=== PATIENT | male | born 1930 | race Caucasian/White ===

== ENCOUNTER → 2016-08-20 | Outpatient (CLI) | payer OTHER, BC ==
[~2016-08-20] MED LIST: ATOR-22 PO; CHOL1000 PO; CHOL100010 PO; DABI150C PO; DUTA0.5C PO; PRD75 PO
[2016-08-20 11:04] LABS: ALT/SGPT 30 U/L (12-78); AST/SGOT 14 U/L (15-37); BLOOD UREA NITROGEN 16 mg/dl (7-18); BUN/CREATININE RATIO 16.1 (10-20); CALCIUM 8.7 mg/dl (8.5-10.1); CARBON DIOXIDE 29 mmol/L (21-32); CHLORIDE 103 mmol/L (98-107); CHOLESTEROL 147 mg/dl (0-200); CREATININE 0.97 mg/dl (0.60-1.40); GLUCOSE 113 mg/dl (70-99); POTASSIUM 4.2 mmol/L (3.5-5.1); SODIUM 137 mmol/L (136-145); TRIGLYCERIDES 87 mg/dl (0-150); VERY LOW DENSITY LIPOPROT CALC 17 mg/dl
[2016-08-20 11:05] LABS: ESTIMATED AVERAGE GLUCOSE 128 mg/dl; HA1C FLAG Normal (Normal)
[2016-08-20 11:07] LABS: ALB/GLOB RATIO 1.1 (0.9-2); ALKALINE PHOSPHATASE 55 U/L (45-117); CHOLESTEROL/HDL RATIO 2.8; HDL CHOLESTEROL 52 mg/dl; LDL CHOLESTEROL CALCULATED 78 mg/dl
--- NOTE | 2016-09-19 11:01 | CODING QUERY MEDICAL NECESSITY ---
SUPPORTING DIAGNOSIS NEEDED Dr. Jiménez, A supporting diagnosis is required for the test/procedure performed on this patient in order for us to be reimbursed by the patient's insurance. Please provide a supporting diagnosis for the following test/procedure listed below next to the test name along with your signature. *If there is no additional diagnosis for this patient that would support the following test/procedure please document that below next to the test/procedure. Test(s)/Procedure(s) that require a supporting diagnosis: * [id number] GLYCATED HEMOGLOBIN DIAGNOSIS: DATE OF SERVICE: 08/20/16 Provider Signature: Date: Thank you Dayron Ahuja [facility] Information Management Once completed, please kindly fax back to [phone] For questions please call [phone]
== END | disposition home or self-care (01) ==
LOC: C.LABBC 09:06
PROVIDERS: ATTEND Family Medicine
DX: N40.1 Benign prostatic hyperplasia with lower urinary tract symptoms (principal); E78.5 Hyperlipidemia, unspecified; I48.91 Unspecified atrial fibrillation; R73.03 Prediabetes; N13.8 Other obstructive and reflux uropathy

== ENCOUNTER → 2016-12-02 | Outpatient (CLI) | payer OTHER, BC ==
[~2016-12-02] MED LIST changes: -CHOL1000 PO; -DABI150C PO; -DUTA0.5C PO
--- NOTE | 2016-12-02 09:56 | DIAGNOSTIC IMAGING REPORT ---
RIGHT HIP UNILATERAL 2 VIEWS CLINICAL HISTORY: 86 years-old Male presenting with right hip pain. TECHNIQUE: Frontal and frog-leg lateral views of the right hip were obtained. COMPARISON: Correlation made to CT from 2015. FINDINGS: Right hip joint congruent. Mild subchondral sclerosis along the acetabulum with subchondral cystic change in the superior acetabulum better appreciated on CT from 2015. Minimal superior joint space loss may be present. No significant osteophytosis. No acute fracture or subluxation. Moderate stool burden in the rectum. IMPRESSION: 1. 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 No acute osseous injury of the right hip. Electronically signed by: Anatoly Murray M.D. 12/02/2016 9:54 AM Dictated Date/Time: 12/02/2016 9:52 AM
--- NOTE | 2016-12-02 09:56 | DIAGNOSTIC IMAGING REPORT ---
L-SPINE MIN 4 VIEWS ROUTINE HISTORY: Pain pain COMPARISON: 09/18/2014 FINDINGS: There is no fracture. No subluxation. Moderate degenerative disc changes throughout. No change compared to the prior study. Old mild wedge deformities of the low thoracic region are stable IMPRESSION: No acute process. Moderate degenerative change considered stable compared to the prior exam The above report was generated using voice recognition software. It may contain grammatical, syntax or spelling errors. Electronically signed by: Carmelo Cohen M.D. 12/02/2016 9:55 AM Dictated Date/Time: 12/02/2016 9:53 AM
== END | disposition home or self-care (01) ==
LOC: C.RADBC 09:05
PROVIDERS: ATTEND Nurse Practitioner Family
DX: M25.551 Pain in right hip (principal); M54.5 Low back pain

== ENCOUNTER → 2017-03-09 | Outpatient (CLI) | payer OTHER, BC ==
[~2017-03-09] MED LIST changes: +CHOL1000 PO; +DABI150C PO; +DUTA0.5C PO
--- NOTE | 2017-03-09 11:46 | DIAGNOSTIC IMAGING REPORT ---
(BARIUM SWALLOW) ESOPHAGUS CLINICAL HISTORY: R13.10 Dysphagia Do not sched until after Mar 05. E X0D E RADF COMPARISON STUDY: None. FLUOROSCOPY TIME: 1.2 minutes. 25 images submitted. FINDINGS: The patient swallowed barium without difficulty. The contours of the hypopharynx are within normal limits. The esophagus is normal in course and caliber. Mild esophageal dysmotility. No gastroesophageal reflux. The barium tablet passed without difficulty. Small hiatus hernia. IMPRESSION: Small hiatus hernia. Mild esophageal dysmotility. Electronically signed by: Carlos Woodard M.D. 03/09/2017 11:45 AM Dictated Date/Time: 03/09/2017 11:44 AM
== END | disposition home or self-care (01) ==
LOC: C.RAD 10:29
PROVIDERS: ATTEND Family Medicine
DX: R13.10 Dysphagia, unspecified (principal); K44.9 Diaphragmatic hernia without obstruction or gangrene

== ENCOUNTER → 2017-07-17 | Outpatient (CLI) | payer OTHER, BC ==
[~2017-07-17] MED LIST changes: -CHOL100010 PO; -PRD75 PO
[2017-07-17 11:06] LABS: HEMOGLOBIN A1C 6.1 % (4.5-5.6)
[2017-07-17 11:14] LABS: ALT/SGPT 35 U/L (12-78); BLOOD UREA NITROGEN 12 mg/dl (7-18); CALCIUM 9.1 mg/dl (8.5-10.1); CARBON DIOXIDE 27 mmol/L (21-32); CHOLESTEROL 149 mg/dl (0-200); CREATININE 1.04 mg/dl (0.60-1.40); GLUCOSE 109 mg/dl (70-99); LDL CHOLESTEROL CALCULATED 77 mg/dl; POTASSIUM 4.2 mmol/L (3.5-5.1); SODIUM 134 mmol/L (136-145)
== END | disposition home or self-care (01) ==
LOC: C.LABBC 08:24
PROVIDERS: ATTEND Family Medicine
DX: E78.5 Hyperlipidemia, unspecified (principal)